=== PATIENT | female | born 1970 | race Caucasian/White ===

== ENCOUNTER 2017-04-03 13:09 | Day surgery (SDC) | payer BC ==
[~2017-04-03] VITALS: Ht 162.6 cm; Wt 68.3 kg
[2017-04-03] VITALS (8 sets, daily range): BP systolic 118–140; BP diastolic 45–88; PULSE 16–110; TEMP 97.9
[2017-04-04 02:05] VITALS: BP 132/81; PULSE 92; TEMP 98.4
[2017-04-04 05:18] VITALS: BP 130/83; PULSE 91; TEMP 98.2
[2017-04-04 09:05] VITALS: BP 132/64; PULSE 54; TEMP 97.8
[2017-04-04 13:21] VITALS: BP 126/71; PULSE 58; TEMP 97.8
[2017-04-04 22:17] VITALS: BP 113/78; PULSE 91; TEMP 98.2
[2017-04-05 01:52] VITALS: BP 114/58; PULSE 81; TEMP 98.8
[2017-04-05 05:31] VITALS: BP 123/69; PULSE 68; TEMP 98.6
[2017-04-05 09:00] VITALS: BP 101/77; PULSE 76; TEMP 98.2
== END 2017-04-05 11:00 | disposition home or self-care (01) ==
LOC: SDCO 13:09 → SURG 13:09 → SDCO 04-04 15:00
DX: T83.84XA Pain due to genitourinary prosthetic devices, implants and grafts, initial encounter (principal); R39.15 Urgency of urination; R35.0 Frequency of micturition; M19.90 Unspecified osteoarthritis, unspecified site; G25.81 Restless legs syndrome
CPT/HCPCS: OP; C1769; C2617; G0378; J0690; J1100; J2270; J2300; J2405; J2704; J2765; J3010; J3480; J7120; Q9967

== ENCOUNTER → 2017-04-03 | Outpatient (CLI) | payer BC ==
[~2017-04-03] MED LIST: ADIPEX-P37.5 MG PO; CALCIUM CITRATE1 TA7 PO; CIPRO; CITROCAL PO; CRANBERRY1 CAP PO; DIURETIC; FASTIN; FLEXERIL 1010 MG/TAB PO; HYDROCODONE/APAP; LORTAB PO; MULTIPLE VITAMI1 CAP PO; NEURONTIN400 MG/CAP PO; NORCO 325 MG-51 TAB PO; NORCO 325 MG-7.1 TAB PO; PHENTERMINE15 MG PO; PROBIOTIC ACID1 EAC3 PO; PROBIOTIC FORMU1 CAP PO; PROZAC; RAPAFLO8 MG PO; VESICARE 5MG5 MG PO; ZYRTEC 10MG10 MG PO; [UNRECOGNIZED DRUG - OTHER]
== END ==
LOC: COL.RAD 10:36
DX: N20.0 Calculus of kidney (principal)

== ENCOUNTER → 2018-02-13 | Outpatient (CLI) | payer BC | LOC: MC.RAD 11:17 | DX: Z12.31 Encounter for screening mammogram for malignant neoplasm of breast (principal) ==

== ENCOUNTER → 2019-04-15 | Outpatient (CLI) | payer BC | LOC: MC.RAD 13:33 | DX: Z12.31 Encounter for screening mammogram for malignant neoplasm of breast (principal) ==

== ENCOUNTER → 2020-05-03 | Outpatient (CLI) | payer BC | LOC: MC.RAD 04-19 10:00 | DX: Z12.31 Encounter for screening mammogram for malignant neoplasm of breast (principal) ==

== ENCOUNTER → 2024-05-26 | Outpatient (CLI) | payer BC ==
[~2024-05-26] MED LIST changes: +AZO-STANDARD95 MG PO; +CITRACAL + D CA1 TAB PO; +LEVSIN0.125 M1 PO; +MIRAPEX 0.0.125 MG/T PO; +OSTEO-BI-FLEX 21 TAB PO; +PAXIL CR 12.512.5 MG PO; +PYRIDIUM 100MG100 MG PO; +WELLBUTRIN XL150 MG PO
== END ==
LOC: MC.RAD 08:17
DX: Z12.31 Encounter for screening mammogram for malignant neoplasm of breast (principal)